=== PATIENT | male | born 1950 | race Caucasian/White ===

== ENCOUNTER 2019-01-17 10:59 | Emergency (ER) | payer MEDICARE ==
[~2019-01-17] VITALS: Ht 177.8 cm; Wt 115.7 kg
[2019-01-17] MEDS ORDERED: TETRACAINE 0.5% EYE DROPS ONE (11:01)
[2019-01-17] MEDS ORDERED: FUL-GLO OP ONE (11:01)
[2019-01-17 11:13] VITALS: BP 130/76
--- NOTE | 2019-01-17 11:14 | NUR ---
ARRIVAL PATIENT ARRIVED TO [facility] WITH FAMILY, C/O OF RIGHT EYE PAIN TODAY, PATIENT STATES HE WAS WORKING ON A FENCE WHEN A PIECE OF RUST WENT INTO HIS EYE, HE ATTEMPTED TO FLUSH IT OUT BUT IT REMAINS IN THE EYE. CAME TO THE ED FOR FURTHER EVAL.
--- NOTE | 2019-01-17 12:18 | ER.PDOC ---
General Chief Complaint: Eye Problems Stated Complaint: OBJECT IN RT EYE Time seen by MD: 12:14 Source: patient Exam Limitations: no limitations History of Present Illness Initial Comments Foreign body right eye causing pain. Timing/Duration: gradual Associated Symptoms: pian Location: right eye Severity: moderate Context: foreign body Where: home Allergies: Coded Allergies: No Known Allergies (Unverified , 01/17/19) Home Meds Unable to Obtain Active Prescriptions or Reported Meds Past Medical History Medical History: hypertension Surgical History: other Social History Smoking: non-smoker Alcohol Use: none Drug Use: none Constitutional: no symptoms reported Eyes: see HPI Throat: no symptoms reported Respiratory: no symptoms reported Cardiovascular: no symptoms reported Gastrointestinal: no symptoms reported All Other Systems: Reviewed and Negative Physical Exam General Appearance: alert, no distress Eyelid: nml inspection Conjunctiva/Sclera: nml inspection Corneas: nml inspection, exam w/flurescein (R) EOM's: intact, no nystagmus Pupils: PERRL, nml accommodation Head/ENT: nml inspection, pharynx nml Skin Exam: Normal Color, Warm/Dry Neck/Back: nml inspection, painless ROM Resp/CVS: no resp distress, lungs clear, heart sounds nml, reg. rate & rhythm Abdomen: non-tender, no organomegaly NEURO/PSYCH: oriented X3, mood/effect nml Results/Orders Results/Orders Vital Signs Date Time Temp Pulse Resp B/P (MAP) Pulse Ox O2 Delivery O2 Flow Rate FiO2 01/17/19 11:13 98.0 86 18 130/76 (94) 96 Room Air 98.0 01/17/19 11:11 98.0 86 18 96 Room Air 98.0 01/17/19 11:10 98.0 86 18 98.0 Progress Progress Eye flushed and patient felt better. Course Vitals & review Data Vital Sign - Last 24 Hours 01/17/19 01/17/19 01/17/19 11:10 11:11 11:13 Temp 98.0 98.0 98.0 98.0 98.0 98.0 Pulse 86 86 86 Resp 18 18 18 B/P (MAP) 130/76 (94) Pulse Ox 96 96 O2 Delivery Room Air Room Air Sepsis Infection Criteria Pres: None O2 Sat by Pulse Oximetry: 96 Departure Time of Disposition: 12:17 Disposition: 01 HOME, SELF-CARE Impression: Primary Impression: Foreign body, eye Condition: Improved Referrals: PCP,UNKNOWN (PCP) PRIMARY CARE PROVIDER Additional Instructions: F/U with [employer] Processing [employer] Operator tomorrow if no improvement. Scripts Unable to Obtain Active Prescriptions or Reported Meds Duration or Time Spent with Pa: 30 mins Problem Qualifiers Primary Impression: Foreign body, eye Encounter type: initial encounter Laterality: right Qualified Codes: T15.91XA - Foreign body on external eye, part unspecified, right eye, initial encounter JEFFERY FUNK MD Jan 17, 2019 12:18
[2019-01-17 12:20] VITALS: BP 125/76
[2019-01-17 12:21] VITALS: BP 125/76
== END 2019-01-17 12:22 | disposition home or self-care (01) ==
LOC: ER 10:59
DX: T15.01XA Foreign body in cornea, right eye, initial encounter (principal); I10 Essential (primary) hypertension; W45.8XXA Other foreign body or object entering through skin, initial encounter; Y93.89 Activity, other specified; Y92.89 Other specified places as the place of occurrence of the external cause; Y99.8 Other external cause status
CPT/HCPCS: 99282